=== PATIENT | female | born 1975 | race African-American/Black ===

== ENCOUNTER 2018-05-01 11:11 | Inpatient (IN) | payer MEDICAID ==
[2018-05-01 11:42] LABS: ADD MAN DIFF? NO
[2018-05-01] MEDS: ONDANSETRON 4 MG INJ IV ×2 (11:51→14:15)
[2018-05-01] MEDS: BELLADONNA/PHENOBARBITAL TAB PO (11:51)
[2018-05-01] MEDS: FAMOTIDINE 20 MG INJ IV (11:51)
[2018-05-01] MEDS: LIDOCAINE/MYLANTA 40 ML BTL PO (11:51)
[2018-05-01 11:52] LABS: WHITE BLOOD COUNT 11.1 10^3/ul (4.8-10.8)
[2018-05-01 11:52] LABS: ABNORMAL IP MESSAGE 1; BASOPHILS % 0.3 % (0.0-2.0); EOSINOPHILS % 0.1 % (0.0-7.0); HEMATOCRIT 40.3 % (37.0-47.0); HEMOGLOBIN 12.8 g/dl (12.0-16.0); LYMPHOCYTES # 1.8 10^3/ul (0.8-2.9); LYMPHOCYTES % 16.4 % (15.0-51.0); MEAN CORPUSCULAR HEMOGLOBIN 32.1 pg (29.0-33.0); MEAN CORPUSCULAR HGB CONC 31.8 g/dl (32.0-37.0); MEAN PLATELET VOLUME 9.3 fl (7.4-10.4); MONOCYTE # 1.2 10^3/ul (0.3-0.9); MONOCYTES % 10.9 % (0.0-11.0); NEUTROPHIL # 7.8 10^3/ul (1.6-7.5); NEUTROPHILS % 70.3 % (39.0-77.0); NUCLEATED RED BLOOD CELLS% 0.3 /100WBC (0.0-0.0); PLATELET COUNT 304 10^3/UL (140-415); RED BLOOD COUNT 3.99 10^6/ul (4.20-5.40); RED CELL DISTRIBUTION WIDTH 22.3 % (11.5-14.5)
[2018-05-01 11:53] LABS: ADD UMIC YES; UR ASCORBIC ACID NEGATIVE (NEGATIVE); UR BACTERIA FEW /HPF (NONE SEEN); UR BILIRUBIN (Dip) NEGATIVE (NEGATIVE); UR BLOOD (Dip) 2+ mg/dL (NEGATIVE); UR CLARITY SLIGHTLY CLOUDY (CLEAR); UR COLOR YELLOW (YELLOW); UR GLUCOSE (Dip) NEGATIVE (NEGATIVE); UR KETONES (Dip) 2+ mg/dL (NEGATIVE); UR LEUKOCYTE ESTERASE (Dip) NEGATIVE Leu/ul (NEGATIVE); UR NITRITE (Dip) NEGATIVE (NEGATIVE); UR RBC 4 /HPF (0-5); UR SPECIFIC GRAVITY (Dip) 1.011 (1.003-1.030); UR SQUAMOUS EPITHELIAL CELL FEW /HPF (FEW); UR TOTAL PROTEIN (Dip) 2+ mg/dl (NEGATIVE); UR UROBILINOGEN (Dip) NEGATIVE (NEGATIVE); UR WBC 0 /HPF (0-5)
[2018-05-01 11:54] LABS: POSITIVE DIFF @See below
[2018-05-01] MEDS: SOD CHLORIDE 0.9% 1,000 ML IV ×2 (12:00→16:14)
[2018-05-01 12:21] LABS: ALANINE AMINOTRANSFERASE 111 IU/L (13-69); ALBUMIN 5.8 g/dl (3.3-4.9); ALBUMIN/GLOBULIN RATIO 1.45; ALKALINE PHOSPHATASE 137 IU/L (42-121); ANION GAP 41 (8-16); ASPARTATE AMINO TRANSFERASE 205 IU/L (15-46); BILIRUBIN,INDIRECT 0.5 mg/dl (0-1.1); BILIRUBIN,TOTAL 0.5 mg/dl (0.2-1.3); BLOOD UREA NITROGEN 6 mg/dl (7-20); CALCIUM 9.2 mg/dl (8.4-10.2); CHLORIDE 106 mmol/L (97-110); GLUCOSE 165 mg/dl (70-220); LIPASE 119 U/L (23-300); POTASSIUM 5.4 mmol/L (3.5-5.1); SODIUM 148 mmol/L (135-144); TOTAL PROTEIN 9.8 g/dl (6.1-8.1)
[2018-05-01 12:26] LABS: CARBON DIOXIDE 6 mmol/L (21-31)
[2018-05-01] MEDS ORDERED: DEXTROSE 10% 1,000 ML IV (13:30)
[2018-05-01] MEDS: LORAZEPAM 2 MG INJ IV (13:54)
[2018-05-01] MEDS: HYDROmorphONE 0.5 MG/0.5 ML SYG IV (14:15)
[2018-05-01] MEDS: LACTATED RINGER'S 1,000 ML IV (14:18)
[2018-05-01] MEDS ORDERED: SOD CHLORIDE 0.9% 1,000 ML IV (14:22)
[2018-05-01] MEDS ORDERED: DOCUSATE SODIUM 100 MG CAP PO (14:30)
[2018-05-01] MEDS ORDERED: morphine 2 MG INJ IV (14:30)
[2018-05-01] MEDS ORDERED: ONDANSETRON 4 MG INJ IV ×2 (14:30→20:30)
[2018-05-01] MEDS ORDERED: NA PHOSPHATE/BIPHOS 133 ML ENEMA PR (14:30)
[2018-05-01] MEDS ORDERED: ALBUTEROL/IPRATROPIUM (NEB) 3 ML AMP HHN (14:30)
[2018-05-01] MEDS ORDERED: NACL 0.9% 3 ML SYG IV (14:30)
[2018-05-01] MEDS ORDERED: NITROGLYCERIN (SL) 0.4 MG TAB SL (14:30)
[2018-05-01] MEDS ORDERED: HYDROCODONE/APAP (5/325) TAB PO (14:30)
[2018-05-01] MEDS ORDERED: LORAZEPAM 2 MG INJ IV (14:30)
[2018-05-01] MEDS ORDERED: hydrALAzine 20 MG INJ IV (14:30)
[2018-05-01] MEDS ORDERED: MULTIVITAMINS 10 ML, THIAMINE 100 MG, FOLIC ACID 1 MG in SOD CHLORIDE 0.9% 1,000 ML IVPB (14:30)
[2018-05-01] MEDS: MULTIVITAMINS 10 ML, THIAMINE 100 MG, FOLIC ACID 1 MG, MAGNESIUM SULFATE 2 GM in SOD CH... IV (14:58)
[2018-05-01 15:33] LABS: HAAIG REFLEX REFLEX FILED
[2018-05-01 16:00] LABS: INR 1.05; PROTIME 13.8 Sec (11.9-14.9); PT RATIO 1.1
[2018-05-01 16:14] LABS: PARTIAL THROMBOPLASTIN TIME 25.3 Sec (25.0-35.0)
[2018-05-01 16:16] LABS: ETHANOL < 10.0 mg/dl
[2018-05-01 16:18] LABS: LACTIC ACID 2.6 mmol/L (0.5-2.0)
[2018-05-01] MEDS: CHLORDIAZEPOXIDE 25 MG CAP PO ×2 (16:25→20:26)
[2018-05-01] MEDS: NA POLYST SULFON 15 GM/60 ML BTL PO (16:26)
[2018-05-01 16:34] LABS: HEPATITIS B SURFACE ANTIGEN NEGATIVE (NEGATIVE)
[2018-05-01 16:49] LABS: FREE T4 (FREE THYROXINE) 0.95 ng/dl (0.64-1.79)
[2018-05-01 16:52] LABS: HEPATITIS B CORE ANTIBODY NEGATIVE (NEGATIVE); HEPATITIS C VIRAL ANTIBODY NEGATIVE (NEGATIVE)
[2018-05-01] MEDS ORDERED: DEXTROSE 5% 1,000 ML IV (18:30)
[2018-05-01] MEDS ORDERED: TRIMETHOBENZAMIDE 100 MG/ML VIAL IM (19:00)
[2018-05-01 19:20] LABS: LACTIC ACID 1.8 mmol/L (0.5-2.0)
[2018-05-01] MEDS ORDERED: ONDANSETRON INJ 8 MG in SOD CHLORIDE 0.9% 50 ML IV (19:30)
[2018-05-01 19:32] LABS: ANION GAP 27 (8-16); BLOOD UREA NITROGEN 6 mg/dl (7-20); CALCIUM 8.1 mg/dl (8.4-10.2); CHLORIDE 112 mmol/L (97-110); CREATININE 0.93 mg/dl (0.44-1.00); GLUCOSE 107 mg/dl (70-220); POTASSIUM 5.4 mmol/L (3.5-5.1); SODIUM 143 mmol/L (135-144)
[2018-05-01 19:43] LABS: CARBON DIOXIDE 9 mmol/L (21-31)
[2018-05-01] MEDS: ACETAMINOPHEN 325 MG TAB PO (20:27)
[2018-05-01] MEDS: SODIUM BICARBONATE (IV ADD) 100 MEQ in DEXTROSE 5% 1,000 ML IV (20:29)
[2018-05-01] MEDS: HEPARIN 5,000 UNIT/0.5 ML VIAL SC (20:29)
[2018-05-01] MEDS: NA BICARBONATE 8.4% 50 ML SYG IV (20:36)
[2018-05-02 02:29] LABS: ADD MAN DIFF? NO
[2018-05-02 02:54] LABS: CHOL/HDL RATIO 1.7 RATIO; HDL CHOLESTEROL 105 mg/dl (34-88); LDL CHOLESTEROL,CALCULATED 53 mg/dl; TRIGLYCERIDES 146 mg/dl (0-149)
[2018-05-02 02:54] LABS: CHOLESTEROL 187 mg/dl (100-200)
[2018-05-02 02:56] LABS: ALANINE AMINOTRANSFERASE 68 IU/L (13-69); ALBUMIN 3.7 g/dl (3.3-4.9); ALBUMIN/GLOBULIN RATIO 1.27; ALKALINE PHOSPHATASE 80 IU/L (42-121); ANION GAP 19 (8-16); ASPARTATE AMINO TRANSFERASE 123 IU/L (15-46); BILIRUBIN,INDIRECT 0.6 mg/dl (0-1.1); BILIRUBIN,TOTAL 0.6 mg/dl (0.2-1.3); BLOOD UREA NITROGEN 6 mg/dl (7-20); CALCIUM 7.8 mg/dl (8.4-10.2); CARBON DIOXIDE 20 mmol/L (21-31); CHLORIDE 105 mmol/L (97-110); CREATININE 0.81 mg/dl (0.44-1.00); GLUCOSE 140 mg/dl (70-220); POTASSIUM 3.6 mmol/L (3.5-5.1); SODIUM 140 mmol/L (135-144); TOTAL PROTEIN 6.6 g/dl (6.1-8.1)
[2018-05-02 02:58] LABS: LACTIC ACID 1.2 mmol/L (0.5-2.0)
[2018-05-02 02:58] LABS: ANION GAP 18 (8-16); BLOOD UREA NITROGEN 6 mg/dl (7-20); CALCIUM 7.7 mg/dl (8.4-10.2); CARBON DIOXIDE 21 mmol/L (21-31); CHLORIDE 105 mmol/L (97-110); CREATININE 0.81 mg/dl (0.44-1.00); GLUCOSE 139 mg/dl (70-220); MAGNESIUM 2.4 mg/dl (1.7-2.5); PHOSPHORUS 0.9 mg/dl (2.5-4.9); POTASSIUM 3.6 mmol/L (3.5-5.1); SODIUM 140 mmol/L (135-144)
[2018-05-02 03:08] LABS: HEMOGLOBIN A1C 5.3 % (0-5.9)
[2018-05-02 03:16] LABS: BASOPHILS % 0.2 % (0.0-2.0); HEMATOCRIT 27.9 % (37.0-47.0); HEMOGLOBIN 9.2 g/dl (12.0-16.0); LYMPHOCYTES # 0.8 10^3/ul (0.8-2.9); LYMPHOCYTES % 17.9 % (15.0-51.0); MEAN CORPUSCULAR HEMOGLOBIN 31.6 pg (29.0-33.0); MEAN CORPUSCULAR VOLUME 95.9 fl (82.0-101.0); MEAN PLATELET VOLUME 9.2 fl (7.4-10.4); MONOCYTE # 0.7 10^3/ul (0.3-0.9); MONOCYTES % 16.3 % (0.0-11.0); NEUTROPHIL # 2.7 10^3/ul (1.6-7.5); NEUTROPHILS % 64.4 % (39.0-77.0); NUCLEATED RED BLOOD CELLS% 0.5 /100WBC (0.0-0.0); PLATELET COUNT 177 10^3/UL (140-415); RED BLOOD COUNT 2.91 10^6/ul (4.20-5.40); RED CELL DISTRIBUTION WIDTH 21.5 % (11.5-14.5)
[2018-05-02 03:16] LABS: WHITE BLOOD COUNT 4.2 10^3/ul (4.8-10.8)
[2018-05-02 04:34] LABS: THYROID STIMULATING HORMONE 0.353 MIU/L (0.465-4.680)
[2018-05-02] MEDS: SODIUM BICARBONATE (IV ADD) 100 MEQ in DEXTROSE 5% 1,000 ML IV ×3 (05:55→20:32)
[2018-05-02] MEDS: PANTOPRAZOLE 40 MG INJ IV (05:55)
[2018-05-02] MEDS: MULTIVITAMINS 10 ML, THIAMINE 100 MG, FOLIC ACID 1 MG in SOD CHLORIDE 0.9% 1,000 ML IVPB (08:21)
[2018-05-02] MEDS: CHLORDIAZEPOXIDE 25 MG CAP PO ×2 (08:21→12:20)
[2018-05-02] MEDS: HEPARIN 5,000 UNIT/0.5 ML VIAL SC ×2 (08:35→20:28)
[2018-05-02] MEDS ORDERED: MULTIVITAMINS 10 ML, THIAMINE 100 MG, FOLIC ACID 1 MG in SOD CHLORIDE 0.9% 1,000 ML IVPB (09:00)
[2018-05-02 09:10] LABS: LACTIC ACID 2.2 mmol/L (0.5-2.0)
[2018-05-02 14:49] LABS: LACTIC ACID 3.8 mmol/L (0.5-2.0)
[2018-05-02] MEDS: MAGNESIUM HYDROXIDE 30ML CUP PO (20:32)
[2018-05-02 20:52] LABS: LACTIC ACID 3.5 mmol/L (0.5-2.0)
[2018-05-03] MEDS: CHLORDIAZEPOXIDE 5 MG CAP PO ×3 (03:54→20:26)
[2018-05-03] MEDS: PANTOPRAZOLE 40 MG INJ IV (05:16)
[2018-05-03] MEDS: SODIUM BICARBONATE (IV ADD) 100 MEQ in DEXTROSE 5% 1,000 ML IV (06:38)
[2018-05-03 06:46] LABS: ADD MAN DIFF? NO
[2018-05-03 06:53] LABS: WHITE BLOOD COUNT 3.2 10^3/ul (4.8-10.8)
[2018-05-03 06:53] LABS: BASOPHILS % 0.6 % (0.0-2.0); EOSINOPHILS % 0.9 % (0.0-7.0); HEMATOCRIT 31.8 % (37.0-47.0); HEMOGLOBIN 10.4 g/dl (12.0-16.0); LYMPHOCYTES # 1.2 10^3/ul (0.8-2.9); LYMPHOCYTES % 37.3 % (15.0-51.0); MEAN CORPUSCULAR HEMOGLOBIN 30.6 pg (29.0-33.0); MEAN CORPUSCULAR HGB CONC 32.7 g/dl (32.0-37.0); MEAN CORPUSCULAR VOLUME 93.5 fl (82.0-101.0); MEAN PLATELET VOLUME 9.3 fl (7.4-10.4); MONOCYTE # 0.3 10^3/ul (0.3-0.9); MONOCYTES % 9.7 % (0.0-11.0); NEUTROPHIL # 1.6 10^3/ul (1.6-7.5); NEUTROPHILS % 51.5 % (39.0-77.0); PLATELET COUNT 163 10^3/UL (140-415); RED CELL DISTRIBUTION WIDTH 20.5 % (11.5-14.5)
[2018-05-03 07:56] LABS: ANION GAP 11 (8-16); BLOOD UREA NITROGEN 3 mg/dl (7-20); CALCIUM 8.4 mg/dl (8.4-10.2); CARBON DIOXIDE 36 mmol/L (21-31); CHLORIDE 95 mmol/L (97-110); CREATININE 0.59 mg/dl (0.44-1.00); GLUCOSE 103 mg/dl (70-220); SODIUM 139 mmol/L (135-144)
[2018-05-03 08:10] LABS: POTASSIUM 2.9 mmol/L (3.5-5.1)
[2018-05-03] MEDS: MULTIVITAMINS 10 ML, THIAMINE 100 MG, FOLIC ACID 1 MG in SOD CHLORIDE 0.9% 1,000 ML IVPB (08:39)
[2018-05-03] MEDS: HEPARIN 5,000 UNIT/0.5 ML VIAL SC ×2 (08:48→20:26)
[2018-05-03] MEDS: POTASSIUM CHLORIDE 20 MEQ POWDER FOR ORAL SOLN PO ×2 (10:13→14:36)
[2018-05-03 10:22] LABS: MAGNESIUM 2.3 mg/dl (1.7-2.5)
[2018-05-03] MEDS ORDERED: CEPASTAT LOZENGE MT (18:00)
[2018-05-04] MEDS: HEPARIN 5,000 UNIT/0.5 ML VIAL SC ×2 (08:40→08:45)
[2018-05-04] MEDS: CHLORDIAZEPOXIDE 5 MG CAP PO (08:41)
[2018-05-04] MEDS: MULTIVITAMINS THERAPEUTIC TAB PO (08:41)
[2018-05-04] MEDS: FOLIC ACID 1 MG TAB PO (08:41)
[2018-05-04] MEDS: THIAMINE 100 MG TAB PO (08:41)
[2018-05-04 08:47] LABS: ADD MAN DIFF? NO
[2018-05-04 08:53] LABS: BASOPHILS % 0.8 % (0.0-2.0); EOSINOPHILS % 0.8 % (0.0-7.0); HEMATOCRIT 32.2 % (37.0-47.0); HEMOGLOBIN 10.5 g/dl (12.0-16.0); LYMPHOCYTES # 1.2 10^3/ul (0.8-2.9); LYMPHOCYTES % 46.2 % (15.0-51.0); MEAN CORPUSCULAR HEMOGLOBIN 31.4 pg (29.0-33.0); MEAN CORPUSCULAR HGB CONC 32.6 g/dl (32.0-37.0); MEAN CORPUSCULAR VOLUME 96.4 fl (82.0-101.0); MEAN PLATELET VOLUME 9.8 fl (7.4-10.4); MONOCYTE # 0.3 10^3/ul (0.3-0.9); MONOCYTES % 10.4 % (0.0-11.0); NEUTROPHIL # 1.1 10^3/ul (1.6-7.5); NEUTROPHILS % 41.8 % (39.0-77.0); PLATELET COUNT 152 10^3/UL (140-415); RED BLOOD COUNT 3.34 10^6/ul (4.20-5.40); RED CELL DISTRIBUTION WIDTH 19.9 % (11.5-14.5)
[2018-05-04 08:53] LABS: WHITE BLOOD COUNT 2.6 10^3/ul (4.8-10.8)
[2018-05-04 09:12] LABS: ANION GAP 8 (8-16); BLOOD UREA NITROGEN 7 mg/dl (7-20); CALCIUM 8.8 mg/dl (8.4-10.2); CARBON DIOXIDE 33 mmol/L (21-31); CHLORIDE 100 mmol/L (97-110); CREATININE 0.63 mg/dl (0.44-1.00); GLUCOSE 112 mg/dl (70-220); POTASSIUM 3.8 mmol/L (3.5-5.1); SODIUM 137 mmol/L (135-144)
[2018-05-04] MEDS: ACETAMINOPHEN 325 MG TAB PO (12:27)
== END 2018-05-04 15:10 | disposition home or self-care (01) | DRG 641 ==
LOC: E/R 11:11 → MS4 17:45
DX: E87.2 Acidosis (principal); F10.239 Alcohol dependence with withdrawal, unspecified; F10.288 Alcohol dependence with other alcohol-induced disorder; K70.10 Alcoholic hepatitis without ascites; E87.5 Hyperkalemia; E05.80 Other thyrotoxicosis without thyrotoxic crisis or storm; E86.0 Dehydration; R11.2 Nausea with vomiting, unspecified; K59.00 Constipation, unspecified; R74.8 Abnormal levels of other serum enzymes; Y90.0 Blood alcohol level of less than 20 mg/100 ml; D64.9 Anemia, unspecified; E05.90 Thyrotoxicosis, unspecified without thyrotoxic crisis or storm
CPT/HCPCS: 36415; 71045; 80048; 80053; 80061; 80307; 81001; 81025; 83036; 83605; 83690; 83735; 84100; 84439; 84443; 85025; 85610; 85730; 86704; 86709; 86803; 87040; 87086; 87340; 96361; 96374; 96375; 97161; 99291-25